=== PATIENT | male | born 1930 | race Caucasian/White ===

== ENCOUNTER 2017-11-23 06:50 | Inpatient (IN) | payer OTHER ==
[~2017-11-23] VITALS: Ht 170.2 cm; Wt 79.4 kg
--- NOTE | 2017-11-23 07:11 | ED GENERAL ADULT ---
History of Present Illness General Chief Complaint: Altered Mental Status Stated Complaint: BIBA, AMS Source: patient, family Exam Limitations: confusion Vital Signs & Intake/Output Vital Signs & Intake/Output Vital Signs Date Time Temp Pulse Resp B/P B/P Pulse O2 O2 Flow FiO2 Mean Ox Delivery Rate 11/23 1008 98.3 75 18 160/76 99 Room Air 11/23 0820 92 20 162/80 96 Room Air 11/23 0708 98.4 84 18 157/74 95 Room Air 11/23 0706 98 Room Air Allergies Coded Allergies: No Known Allergies (11/23/17) Reconcile Medications Allopurinol 300 MG TABLET 1 TAB PO DAILY GOUT (Reported) Felodipine (Felodipine ER) 10 MG TAB.ER.24H 1 TAB PO DAILY HTN (Reported) Levothyroxine Sodium 75 MCG TABLET 1 TAB PO DAILY THYROID (Reported) Lisinopril 20 MG TABLET 1 TAB PO DAILY HTN (Reported) Lovastatin 40 MG TABLET 1 TAB PO DAILY CHOLESTEROL (Reported) with food Metoprolol Tartrate 50 MG TABLET 1 TAB PO BID HTN (Reported) Triage Note: TRIAGE: BIBA FROM HOME, PER EMS PATIENT STATES "HEARD HIM FALL WHEN HE GOT UP TO GO TO THE BATHROOM, ACTING WEIRD SINCE." PATIENT NOTED W/ SLURRED SPEECH, DIFFICULTY FINDING WORDS, NO NEURO DEFICITS NOTED. NO OBVIOUS SIGNS OF TRAUMA NOTED. PREHOSP IV EST #18 RH, PREHOSP FINGERSTICK 136. MD CARRILLO AND CT AWARE OF PATIENT ARRIVAL. Triage Nurses Notes Reviewed? yes Onset: Abrupt Duration: unknown duration Timing: recent history HPI: 11/23/17 87-year-old male presents to the emergency department for slurred speech and altered mental status. The patient was last seen in his usual state of health last night. This morning shortly after waking his heard a thump and found him crawling on the floor. He had slurred speech and they called the son who immediately came over. The son tells me that he had right sided facial asymmetry at that time. This has since improved. But on initial presentation in the ED he did slightly have garbled speech. He denies fever or headache shortness of breath or any pain. He has a past medical history of hypothyroidism, hypertension, and coronary artery disease. Initial EKG reveals new T wave inversions in leads III and aVF. Past History Travel History Traveled to [place] past 21 day No Medical History Any Pertinent Medical History? see below for history Cardiovascular: CAD, hypertension, hyperlipidemia Musculoskeletal: gout Surgical History Surgical History: non-contributory Family History Hx Contributory? No Review of Systems Review of Systems Constitutional: Denies: fever. EENTM: Denies: double vision. Respiratory: Reports: no symptoms. Cardiovascular: Reports: no symptoms. GI: Denies: abdominal pain. Genitourinary: Reports: no symptoms. Musculoskeletal: Reports: see HPI. Skin: Denies: rash. Neurological/Psychological: Reports: no symptoms. Hematologic/Endocrine: Reports: no symptoms. Immunologic/Allergic: Reports: no symptoms. Physical Exam Physical Exam General Appearance: well developed/nourished, alert, awake Head: atraumatic, normal appearance Eyes: Bilateral: normal appearance, PERRL, EOMI. Ears, Nose, Throat: normal pharynx, normal ENT inspection Neck: normal inspection, supple Respiratory: normal breath sounds, chest non-tender, no respiratory distress Cardiovascular: regular rate/rhythm Peripheral Pulses: 4+ radial (R), 4+ radial (L) Gastrointestinal: soft, non-tender Back: normal range of motion Extremities: normal inspection, normal range of motion Neurologic/Psych: awake, alert, oriented x 3 Skin: intact, normal color, warm/dry Comments: The patient has slight garbled speech but otherwise his neurological exam is normal. He has a positive gag reflex and tolerates water. Core Measures ACS in differential dx? Yes No ASA d/t GIVEN CVA/TIA Diagnosis: Yes NIH Stroke Scale (24 Hours) NIH Stroke Scale (24 Hours) Response Value Level of Consciousness alert 0 LOC Questions answers both correctly 0 LOC Commands obeys one correctly 1 Best Gaze normal 0 Visual Welsh no visual loss 0 Facial Paresis normal 0 Motor Arm - Left no drift 0 Motor Arm - Right no drift 0 Motor Leg - Left no drift 0 Motor Leg - Right no drift 0 Limb Ataxia no ataxia 0 Sensory normal 0 Best Language no aphasia 0 Dysarthria mild/mod slurring words 1 Extinction and Inattention no neglect 0 Total 2 Date Last Known Well: 11/22/17 Time Last Known Well: 1999 Reason tPA not ordered Medical Contraindication Swallow Evaluation Pass Swallow eval date 11/23/17 Sepsis Present: No Sepsis Focused Exam Completed? No Progress Differential Diagnoses I considered the following diagnoses in my evaluation of the patient: [TIA, CVA, sepsis, lactic acidosis, dehydration, acute coronary syndrome] Plan of Care: Orders Procedure Date/time Status Heart Healthy Diet 11/23 L Active Patient Data 11/23 1032 Active LACTIC ACID 11/23 1029 Active ED Holding Orders 11/23 1024 Active Admit to inpatient 11/23 1024 Active Vital Signs 11/23 1024 Active Code Status 11/23 1024 Active EKG 11/23 0738 Active Saline Lock 11/23 0730 Active CULTURE,URINE 11/23 0729 Active BLOOD CULTURE 11/23 07 Active URINALYSIS 11/23 728 Active TSH REFLEX 11/23 07 Complete TROPONIN LEVEL 11/23 728 Complete LACTIC ACID 11/23 728 Complete COMPREHENSIVE METABOLIC PANEL 11/23 728 Complete CBC WITHOUT DIFFERENTIAL 11/23 728 Complete NIH Stroke Scale 11/23 07 Active Intake & Output 11/23 0654 Active Laboratory Tests 11/23/17 1022: Urine Color Pending, Urine Clarity Pending, Urine pH Pending, Ur Specific [place] Pending, Urine Protein Pending, Urine Ketones Pending, Urine Nitrite Pending, Urine Bilirubin Pending, Urine Urobilinogen Pending, Ur Leukocyte Esterase Pending, Ur Microscopic SEDIMENT EXAMINED, Urine RBC Pending, Urine Hemoglobin Pending, Urine Glucose Pending 11/23/17 0745: Anion Gap 16, Estimated GFR > 60, BUN/Creatinine Ratio 15.0, Glucose 145 H, Lactic Acid 2.6 H, Calcium 9.4, Total Bilirubin 1.0, AST 35, ALT 44, Alkaline Phosphatase 103, Troponin I 0.01, Total Protein 6.7, Albumin 3.8, Globulin 2.9, Albumin/Globulin Ratio 1.3, TSH &T3 &Free T4 Intrp 2.490, CBC w Diff NO MAN DIFF REQ, RBC 5.09, MCV 95.1 H, MCH 32.2 H, RDW 13.5, MPV 7.9, Gran % 84.0 H, Lymphocytes % 7.3 L, Monocytes % 7.9, Eosinophils % 0.3, Basophils % 0.5, Absolute Granulocytes 11.2 H, Absolute Lymphocytes 1.0 L, Absolute Monocytes 1.0 H, Absolute Eosinophils 0, Absolute Basophils 0.1, PUBS MCHC 33.9 Microbiology 11/23 1022 URINE ROUT: Urine Culture - RECD 11/23 0832 BLOOD: Blood Culture - RECD 11/23 744 BLOOD: Blood Culture - RECD Initial ED EKG: NSR, DOWN T IN III AND AVF, NEW Prior EKG: changed Departure Departure Disposition: STILL A PATIENT Condition: Stable Clinical Impression Primary Impression: Acute electrocardiogram changes Secondary Impressions: Altered mental status, Lactic acid acidosis, TIA ( transient ischemic attack) Referrals: Noé MOORE,Godwin Allison (PCP/Family) Departure Forms: Customer Survey General Discharge Information Admission Note Spoke With: Deyvi MOORE,Teena Documentation of Exam: Documentation of any treatments & extenuating circumstances including Concerns Regarding Discharge (functional status, medication knowledge or non-compliance, living conditions, etc.) that warrant an admission rather than observation: [The patient needs admission for serial EKG and troponins, consider cardiology consultation, neurological examinations every 6 hours, inpatient MRI of the brain, consider neurology consultation, IV fluids given gently. I considered sepsis. However I do not think the patients lactic acidosis Is secondary to sepsis. Therefore only minimal IV fluids were given has he is hypertensive. Critical Care Note Critical Care Note Critical Care Time: non-applicable
--- NOTE | 2017-11-23 07:39 | CT SCAN REPORT ---
EXAMINATION: CT HEAD WITHOUT CONTRAST CLINICAL INFORMATION: Slurred speech. Difficulty finding words. Altered mental status. COMPARISON: None TECHNIQUE: Contiguous axial imaging was performed from the skull base to vertex without intravenous administration of contrast. DLP: 621 mGy-cm FINDINGS: Moderate diffuse commensurate prominence of ventricles and sulci is noted. Segmental vascular calcifications are present in the intradural segments of the vertebral arteries and cavernous portions of the internal carotid arteries bilaterally. Focal subcentimeter areas of cystic encephalomalacia are present in at least 3 locations in the right lentiform nucleus, and the anterior limb of the right internal capsule consistent with chronic lacunar infarcts. Moderate patchy hypodensities are present in the supratentorial periventricular white matter and ventral tess suspicious for chronic small vessel ischemic disease. No intracranial hemorrhage, tumors or acute appearing infarcts are identified. The orbits and globes are grossly normal in appearance. No significant opacification of the visualized paranasal sinuses, mastoid air cells or middle ear cavities is noted. IMPRESSION: 1. No acute abnormalities identified. 2. Multiple chronic lacunar infarcts and mild-moderate white matter chronic small vessel ischemic disease. 3. Mild-moderate diffuse parenchymal volume loss of the brain.
[2017-11-23 08:00] LABS: ABSOLUTE BASOPHIL COUNT 0.1 /CUMM (0.0-0.2); ABSOLUTE EOSINOPHIL COUNT 0 /CUMM (0.0-0.7); ABSOLUTE GRANULOCYTE CT 11.2 /CUMM (1.4-6.5); BASOPHIL % 0.5 % (0.0-2.0); EOSINOPHIL % 0.3 % (0-5); HEMATOCRIT 48.4 % (42-52); MEAN CORPUSCULAR HGB 32.2 PG (27.0-31.0); MEAN CORPUSCULAR HGB CONC 33.9 G/DL (33.0-37.0); MEAN CORPUSCULAR VOLUME 95.1 FL (80.0-94.0); MEAN PLATELET VOLUME 7.9 FL (7.4-10.4); PLATELET COUNT 223 /CUMM (130-400); RBC DISTRIBUTION WIDTH 13.5 % (11.5-14.5); RED BLOOD CELL CT 5.09 /CUMM (4.70-6.10); WHITE BLOOD CELL COUNT 13.3 /CUMM (4.8-10.8)
[2017-11-23] MEDS ORDERED: LOVASTATIN40 M1 PO (08:08)
[2017-11-23] MEDS ORDERED: ALLOPURINOL300 M1 PO (08:09)
[2017-11-23] MEDS ORDERED: LISINOPRIL20 M1 PO (08:09)
[2017-11-23] MEDS ORDERED: FELODIPINE ER10 MG PO (08:09)
[2017-11-23] MEDS ORDERED: LEVOTHYROXINE75 MCG PO (08:09)
[2017-11-23] MEDS ORDERED: METOPROLOL TART50 M1 PO (08:09)
--- NOTE | 2017-11-23 08:09 | RADIOLOGY REPORT ---
EXAMINATION: XR PORTABLE CHEST CLINICAL INFORMATION: Weakness. Rule out pneumonia. COMPARISON: None TECHNIQUE: Portable AP 85 degrees upright view of the chest was obtained. FINDINGS: Median sternotomy wires are demonstrated. The cardiac silhouette is not enlarged. There are surgical clips visualized. The lungs and pleural spaces are clear. IMPRESSION: No acute pulmonary findings.
[2017-11-23] MEDS ORDERED: ASPIRIN81 M4 PO (11:31)
--- NOTE | 2017-11-23 12:41 | History & Physical ---
See Addendum General Information and HPI MD Statement: I have seen and personally examined LUCRETIA AMARO and documented this H&P. The patient is a 87 year old M who presented with a patient stated chief complaint of [weakness and slurred speech]. Source of Information: patient, family, EMS Exam Limitations: no limitations History of Present Illness: Mr. 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 Most of the history was obtained from the patient and family at bedside reported that up to 5:30 AM he was feeling well and woke up to go to the bathroom in the bathroom he felt weak and stumbled down on his knees, he denied any fall, loss of consciousness, convulsions. Patient crawled back to his bed where his is. According to the patient was breathing heavily and was mumbling with no clear words, she called her son who live next door and came and called EMS. Patient however was able to stand and lay on bed on his own. They also reported right fascial drooping "his eye was closed, his mouth was drooping" but no loss of consciousness or disorientation. His speech started gradually to improve however he was frustrated and had some difficulty finding words at home. Patient denied any similar previous episodes, no weakness, numbness, chest pain, palpitation, shortness of breath, abdominal pain, nausea or vomiting. No history of recent sickness or history of sick contact. 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 He only follow with his PCP and cardiology Dr. Kurtz. Patient denied any recent changes in his medication and used to take his medication as instructed. He reported occasional cigar smoking, he is an every day drinker used to drink scotch couple shots and 2 beers daily. No history of drugs. Allergies/Medications Allergies: Coded Allergies: No Known Allergies (11/23/17) Home Med list Allopurinol 300 MG TABLET 1 TAB PO DAILY GOUT (Reported) Aspirin (Aspirin*) 81 MG TAB.CHEW 1 TAB PO DAILY HEART HEALTH (Reported) Felodipine (Felodipine ER) 10 MG TAB.ER.24H 1 TAB PO DAILY HTN (Reported) Levothyroxine Sodium 75 MCG TABLET 1 TAB PO DAILY THYROID (Reported) Lisinopril 20 MG TABLET 1 TAB PO DAILY HTN (Reported) Lovastatin 40 MG TABLET 1 TAB PO DAILY CHOLESTEROL (Reported) with food Metoprolol Tartrate 50 MG TABLET 1 TAB PO BID HTN (Reported) Past History Travel History Traveled to [place] past 21 day No Medical History Cardiovascular: CAD, hypertension, hyperlipidemia Musculoskeletal: gout Endocrine: hypothyroidism Isolation History: Standard Surgical History Surgical History: non-contributory Past Family/Social History Psychosocial History Where do you live? Home Who Do You Live With? spouse Services at Home: None Primary Language: Portuguese Smoking Status: Current Some Day Smoker ETOH Use: heavy use Illicit Drug Use: denies illicit drug use Functional Ability ADLs Independent: dressing, eating, toileting, bathing. Ambulation: independent IADLs Independent: shopping, housework, finances, food prep, telephone, transportation , medication admin. Review of Systems Review of Systems Constitutional: Denies: chills, fever, weakness. EENTM: Denies: blurred vision, nasal congestion, epistaxis, nasal pain, throat pain. Cardiovascular: Denies: chest pain, orthopena, palpitations, peripheral edema, syncope. Respiratory: Denies: cough, short of breath. GI: Denies: abdominal pain, diarrhea, nausea, vomiting. Genitourinary: Denies: discharge, dysuria, frequency, hematuria. Musculoskeletal: Denies: back pain, joint pain, muscle pain. Skin: Denies: rash. Neurological/Psychological: Denies: anxiety, ataxia, confusion, dementia, headache, numbness, tingling. Hematologic/Endocrine: Denies: bruising. Exam & Diagnostic Data Last 24 Hrs of Vital Signs/I&O Vital Signs Date Time Temp Pulse Resp B/P B/P Pulse O2 O2 Flow FiO2 Mean Ox Delivery Rate 11/23 1453 97.8 67 20 150/78 96 Room Air 11/23 1051 160/76 11/23 1051 160/76 11/23 1051 160/76 11/23 1008 98.3 75 18 160/76 99 Room Air 11/23 0820 92 20 162/80 96 Room Air 11/23 0708 98.4 84 18 157/74 95 Room Air 11/23 0706 98 Room Air Intake & Output 11/23 1600 11/23 0800 11/23 0000 Intake Total Output Total Balance Patient 79.379 kg 79.379 kg Weight Weight Estimated Measurement Method Physical Exam General Appearance Alert, Oriented X3, Cooperative, No Acute Distress Skin No Rashes Skin Temp/Moisture Exam: Warm/Dry HEENT Atraumatic, PERRLA, EOMI, Mucous Membr. moist/pink Neck Supple Lymphatic No cervical lymphadenopathy Cardiovascular Regular Rate, Normal S1, Normal S2, Systolic murmur Lungs Clear to Auscultation, Normal Air Movement Abdomen Normal Bowel Sounds, Soft, No Tenderness Neurological Normal Gait, Normal Speech, Strength at 5/5 X4 Ext, Normal Tone, Sensation Intact, Cranial Nerves 3-12 NL, Hypo- reflexia x4 finger to nose abnormal right side dysmetria normal rapid alternation movement abnormal questionable knee to heel test bilateral no ataxia no nystagmus no tremors, babinski negative bilateral Extremities No Clubbing, No Cyanosis, No Edema, Normal Pulses Assessment/Plan Assessment: Mr. 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 1 admission vital signs 98.4, pulse 84 regular, blood pressure 157/74, respiratory rate 18 and saturation 98% room air Labs significant for leukocytosis 13.3 with no bands, normal electrolytes, lactic acid 2.6, sugar 145, UA negative nitrates CT head IMPRESSION: 1. No acute abnormalities identified. 2. Multiple chronic lacunar infarcts and mild-moderate white matter chronic small vessel ischemic disease. 3. Mild-moderate diffuse parenchymal volume loss of the brain. Chest x-ray IMPRESSION: No acute pulmonary findings. Problem list #Stroke versus TIA #History of hypertension #History of coronary artery disease #Hyperlipidemia Patient physical exam is positive for cerebellar ischemia given dysmetria on the right side and abnormal knee to heel test. CT on admission revealed multiple chronic laucnar infarctions in setting of multiple risk factors hypertension, hyperlipidemia and CAD disease. Patient's symptoms gradually improving however continue to be below baseline in terms of slurred speech. Totally denied weakness or numbness. Patient could have minor stroke involving cerebellum. He would be admitted to telemetry floor, will obtain MRI head with and without JAVED, get neuro consultation and cardiac consultation. Will obtain coronary artery ultrasound. Will obtain swallow evaluation prior starting the diet. We will obtain hemoglobin A1c to rule out diabetes as an additional risk factor. Continue aspirin and statin. We should allow for permissive hypertension however after discussing the case with the neurologist Dr. Cruz, patient's blood pressure has been systolic 150- 160 which is acceptable and we will continue with home medications, avoid adding extra blood pressure medication. Patient presented with mild leukocytosis without bandemia, lactic acid of 2.6. I think leukocytosis mostly reactional as patient has no symptoms or signs of infection. Lactic acid could represent ischemic versus dehydration, would hydrate gently with normal saline 100 mL/h and remeasure in 3 hours. Patient received one dose of ceftazidime in ED, will follow off antibiotics. Code full DVT prophylaxis Lovenox cleared by neurologist Dr. Cruz Diet nothing by mouth pending swallow eval As Ranked By This Provider Problem List: 1. Lactic acid acidosis 2. TIA (transient ischemic attack) 3. Altered mental status Core Measures/Misc (07/30) Acute Coronary Syndrome ACS Diagnosis: No Congestive Heart Failure Congestive Heart Failure Diagnosis No Cerebrovascular Accident CVA/TIA Diagnosis: Yes Date Last Known Well: 11/22/17 Time Last Known Well: 1999 Swallow Evaluation Pass VTE (View Protocol) VTE Risk Factors Age>40 No Mechanical VTE Prophylaxis d/t N/A MechProphylax Ordered No VTE Pharm Prophylaxis d/t NA PharmProphylax ordered Sepsis (View protocol) Sepsis Present: No
--- NOTE | 2017-11-23 13:58 | Cons- Cardiology ---
General Information and HPI Consulting Request Date of Consult: 11/23/17 Requested By: Ernesto Acuna MD Reason for Consult: Question stroke, question EKG changes and an 87-year-old man with previous coronary bypass surgery. Source of Information: patient, old records Exam Limitations: no limitations History of Present Illness: Romain Amaro is an 87-year-old male who presented in 2004 with increasing angina, which he had since 1985. Cardiac catheterization showed left main and severe 3-vessel disease. He had coronary bypass surgery in 2004 with vein grafts to the right, marginal circumflex and a sequential BOATENG to diagonal and LAD. He has done very well since then with no recurrent angina, etc. His last stress testing was in 2004, which looked good. He also has had mild aortic stenosis which has been slightly progressive. His echo in 2012 showed a mean gradient of only 12 mmHg. He has never had symptoms from this. He also has dyslipidemia on medical therapy and this has been nicely controlled. He had a followup echo for his aortic valve disease on 02/17/2016 which showed normal LV function, mild aortic stenosis with a peak gradient of 25.6 mmHg and a mean gradient of 13 mmHg. At his last visit in August 2017 Romain was feeling well. He had no cardiac complaints at that time. He denied chest pain, shortness of breath, palpitations , dizziness, syncope, edema, etc. His medications included aspirin, felodipine, lisinopril, lovastatin, and metoprolol. His labs in July showed a cholesterol of 156 and an LDL of 48, and the rest of his routine labs were unremarkable. At the time of that visit I recommended another echocardiogram to follow-up on his aortic valve disease, but he did not have that done as yet. The patient was brought to the emergency department today because of slurred speech. His EKG was noted to have some minor changes as well his initial troponin is negative. There were no complaints of chest pain or shortness of breath. His CT of the head showed nothing acute but he has evidence of previous lacunar infarcts and volume loss. However his MRI does show evidence of multiple acute infarcts. Allergies/Medications Allergies: Coded Allergies: No Known Allergies (11/23/17) Home Med List: Allopurinol 300 MG TABLET 1 TAB PO DAILY GOUT (Reported) Aspirin (Aspirin*) 81 MG TAB.CHEW 1 TAB PO DAILY HEART HEALTH (Reported) Felodipine (Felodipine ER) 10 MG TAB.ER.24H 1 TAB PO DAILY HTN (Reported) Levothyroxine Sodium 75 MCG TABLET 1 TAB PO DAILY THYROID (Reported) Lisinopril 20 MG TABLET 1 TAB PO DAILY HTN (Reported) Lovastatin 40 MG TABLET 1 TAB PO DAILY CHOLESTEROL (Reported) with food Metoprolol Tartrate 50 MG TABLET 1 TAB PO BID HTN (Reported) Current Medications: Current Medications Sig/Demond Start time Last Medication Dose Route Stop Time Status Admin Acetaminophen 650 MG Q6P PRN 11/23 1230 AC PO Allopurinol 300 MG DAILY 11/24 1000 AC PO Amlodipine Besylate 10 MG DAILY 11/24 1000 AC PO Amlodipine Besylate 10 MG ONCE ONE 11/23 0915 DC 11/23 PO 11/23 0916 1051 Aspirin 81 MG DAILY 11/24 1000 AC PO Aspirin 0 .STK-MED ONE 11/23 1002 DC PO Aspirin 81 MG ONCE ONE 11/23 0915 DC 11/23 PO 11/23 0916 1007 Atorvastatin Calcium 40 MG 1700 11/23 1700 AC PO Ceftazidime 0 .STK-MED ONE 11/23 1034 DC .ROUTE Ceftazidime 1,000 MG STAT STA 11/23 0913 DC 11/23 IV 11/23 0914 1039 Enoxaparin Sodium 40 MG DAILY 11/23 1221 AC 11/23 SC 1238 Levothyroxine Sodium 0.075 MG DAILY AC 11/23 1205 AC 11/23 PO 1238 Lisinopril 20 MG DAILY 11/24 1000 AC PO Lisinopril 20 MG ONCE ONE 11/23 0915 DC 11/23 PO 11/23 0916 1051 Metoprolol Tartrate 50 MG BID 11/23 2200 AC PO Metoprolol Tartrate 50 MG ONCE ONE 11/23 09 DC 11/23 PO 11/23 0916 1051 Sodium Chloride 1,000 ML .Q10H 11/23 1230 AC 11/23 IV 1239 Sodium Chloride 250 ML BOLUS ONE 11/23 914 DC 11/23 IV 11/23 1014 1007 Review of Systems Review of Systems: No other complaints Past History Travel History Traveled to [place] past 21 day No Medical History Cardiovascular: aortic stenosis, CAD, hypertension, hyperlipidemia, S/P CABG Musculoskeletal: gout Endocrine: hypothyroidism Surgical History Surgical History: non-contributory Psychosocial History ETOH Use: occasional use Illicit Drug Use: denies illicit drug use Exam & Diagnostic Data Vital Signs and I&O Vital Signs Date Time Temp Pulse Resp B/P B/P Pulse O2 O2 Flow FiO2 Mean Ox Delivery Rate 11/23 1051 160/76 11/23 1051 160/76 11/23 1051 160/76 11/23 1008 98.3 75 18 160/76 99 Room Air 11/23 0820 92 20 162/80 96 Room Air 11/23 0708 98.4 84 18 157/74 95 Room Air 11/23 0706 98 Room Air Intake & Output 11/23 1600 11/23 0800 11/23 0000 11/22 1600 11/22 0800 11/22 0000 Intake Total Output Total Balance Patient 175 lb Weight Physical Exam: Well-developed well-nourished elderly man in no acute distress, some slurring of speech but appropriate. No obvious weakness. HEENT exam normal Neck veins are not distended No carotid bruits Chest is clear Heart regular rhythm, soft systolic ejection murmur at the base. Extremities no edema. Labs/[place] Results: Laboratory Tests 11/23 11/23 1150 1022 Chemistry Lactic Acid (0.7 - 2.1 mmol/L) 1.9 Urines Urinalysis LIGHT H Urine Color (YEL,AMB,STR) YEL Urine Clarity (CLEAR) CLEAR Urine pH (5.0 - 8.0) 6.0 Ur Specific [place] (1.001 - 1.035) 1.025 Urine Protein (NEG,<30 MG/DL) TRACE H Urine Ketones (NEG) NEG Urine Nitrite (NEG) NEG Urine Bilirubin (NEG) NEG Urine Urobilinogen (0.1 - 1.0 EU/dl) 0.2 Ur Leukocyte Esterase (NEG) NEG Ur Microscopic SEDIMENT EXAMINED Urine RBC (0 - 5 /HPF) RARE Urine WBC (0 - 2 /HPF) RARE Ur Epithelial Cells (NONE,FEW) RARE Urine Bacteria (NEG/NONE) RARE H Hyaline Casts (0/LPF) RARE H Granular Casts (NONE /LPF) RARE H Urine Mucus (FEW,NONE) FEW Urine Hemoglobin (NEG) NEG Urine Glucose (N MG/DL) NEG 11/23 0745 Chemistry Sodium (137 - 145 mmol/L) 142 Potassium (3.5 - 5.1 mmol/L) 4.1 Chloride (98 - 107 mmol/L) 104 Carbon Dioxide (22 - 30 mmol/L) 22 Anion Gap (5 - 16) 16 BUN (9 - 20 mg/dL) 15 Creatinine (0.7 - 1.2 mg/dL) 1.0 Estimated GFR (>60 ml/min) > 60 BUN/Creatinine Ratio (7 - 25 %) 15.0 Glucose (65 - 99 mg/dL) 145 H Hemoglobin A1c (4.2 - 5.8 %) Pending Lactic Acid (0.7 - 2.1 mmol/L) 2.6 H Calcium (8.4 - 10.2 mg/dL) 9.4 Total Bilirubin (0.2 - 1.3 mg/dL) 1.0 AST (17 - 59 U/L) 35 ALT (21 - 72 U/L) 44 Alkaline Phosphatase (< 127 U/L) 103 Troponin I (<0.11 ng/ml) 0.01 Total Protein (6.3 - 8.2 g/dL) 6.7 Albumin (3.5 - 5.0 g/dL) 3.8 Globulin (1.9 - 4.2 gm/dL) 2.9 Albumin/Globulin Ratio (1.1 - 2.2 %) 1.3 TSH &T3 &Free T4 Intrp (0.27 - 4.20 uIU/mL) 2.490 Hematology CBC w Diff NO MAN DIFF REQ WBC (4.8 - 10.8 /CUMM) 13.3 H RBC (4.70 - 6.10 /CUMM) 5.09 Hgb (14.0 - 18.0 G/DL) 16.4 Hct (42 - 52 %) 48.4 MCV (80.0 - 94.0 FL) 95.1 H MCH (27.0 - 31.0 PG) 32.2 H RDW (11.5 - 14.5 %) 13.5 Plt Count (130 - 400 /CUMM) 223 MPV (7.4 - 10.4 FL) 7.9 Gran % (42.2 - 75.2 %) 84.0 H Lymphocytes % (20.5 - 51.1 %) 7.3 L Monocytes % (1.7 - 9.3 %) 7.9 Eosinophils % (0 - 5 %) 0.3 Basophils % (0.0 - 2.0 %) 0.5 Absolute Granulocytes (1.4 - 6.5 /CUMM) 11.2 H Absolute Lymphocytes (1.2 - 3.4 /CUMM) 1.0 L Absolute Monocytes (0.10 - 0.60 /CUMM) 1.0 H Absolute Eosinophils (0.0 - 0.7 /CUMM) 0 Absolute Basophils (0.0 - 0.2 /CUMM) 0.1 PUBS MCHC (33.0 - 37.0 G/DL) 33.9 Diagnostic Data EKG Results EKG shows probably an ectopic atrial rhythm at a rate of 78. There is borderline right axis deviation. There is nonspecific inferior T-wave changes. CXR Results PATIENT: ROMAIN AMARO PRESENT AGE: 87 PATIENT ACCOUNT NO: [id number] : 30 LOCATION: [facility] ORDERING PHYSICIAN: Frantz Daley DO SERVICE DATE: 11/23/17 EXAM TYPE: RAD - XRY-PORTABLE CHEST XRAY EXAMINATION: XR PORTABLE CHEST CLINICAL INFORMATION: Weakness. Rule out pneumonia. COMPARISON: None TECHNIQUE: Portable AP 85 degrees upright view of the chest was obtained. FINDINGS: Median sternotomy wires are demonstrated. The cardiac silhouette is not enlarged. There are surgical clips visualized. The lungs and pleural spaces are clear. IMPRESSION: No acute pulmonary findings. Other Results PATIENT: ROMAIN AMARO PRESENT AGE: 87 PATIENT ACCOUNT NO: [id number] : 30 LOCATION: [facility] ORDERING PHYSICIAN: Frantz Daley DO SERVICE DATE: 11/23/17 EXAM TYPE: CAT - CT HEAD WO IV CONTRAST EXAMINATION: CT HEAD WITHOUT CONTRAST CLINICAL INFORMATION: Slurred speech. Difficulty finding words. Altered mental status. COMPARISON: None TECHNIQUE: Contiguous axial imaging was performed from the skull base to vertex without intravenous administration of contrast. DLP: 621 mGy-cm FINDINGS: Moderate diffuse commensurate prominence of ventricles and sulci is noted. Segmental vascular calcifications are present in the intradural segments of the vertebral arteries and cavernous portions of the internal carotid arteries bilaterally. Focal subcentimeter areas of cystic encephalomalacia are present in at least 3 locations in the right lentiform nucleus, and the anterior limb of the right internal capsule consistent with chronic lacunar infarcts. Moderate patchy hypodensities are present in the supratentorial periventricular white matter and ventral tess suspicious for chronic small vessel ischemic disease. No intracranial hemorrhage, tumors or acute appearing infarcts are identified. The orbits and globes are grossly normal in appearance. No significant opacification of the visualized paranasal sinuses, mastoid air cells or middle ear cavities is noted. IMPRESSION: 1. No acute abnormalities identified. 2. Multiple chronic lacunar infarcts and mild-moderate white matter chronic small vessel ischemic disease. 3. Mild-moderate diffuse parenchymal volume loss of the brain. DICTATED BY: Jesus Nava MD DATE/TIME DICTATED:11/23/17730 [employer] TECHNICIAN:CHAVA DATE/TIME TRANSCRIBED:11/23/17730 CONFIDENTIAL, DO NOT COPY WITHOUT APPROPRIATE AUTHORIZATION. <Electronically signed in Other Vendor System> SIGNED BY: Jesus Nava MD 11/23/1739 PATIENT: ROMAIN AMARO PRESENT AGE: 87 PATIENT ACCOUNT NO: [id number] : 30 LOCATION: [facility] ORDERING PHYSICIAN: Nica Goode MD SERVICE DATE: 11/23/17- EXAM TYPE: US - [id number] DOPPLER EXAMINATION: DUPLEX BILATERAL CAROTID ULTRASOUND CLINICAL INFORMATION: Slurred speech. COMPARISON: No similar prior examinations available for comparison. TECHNIQUE: Real-time ultrasound and Doppler techniques (integrating B-mode 2D vascular images, Doppler spectral analysis and color flow Doppler imaging) were utilized to interrogate the extracranial carotid and vertebral arteries bilaterally. The degree of stenosis determined by criteria similar to NASCET. FINDINGS: Right side: 1. Moderate amount of plaque is seen in the ECA/ICA region. 2. The common carotid artery velocity is 38 cm/s. 3. The internal carotid artery velocities are 92 cm/s systolic and 18 cm/s diastolic. 4. The external carotid artery velocity is 175 cm/s. Left side: 1. Moderate amount of plaque is seen in the ECA/ICA region. 2. The common carotid artery velocity is 49 cm/s. 3. The internal carotid artery velocities are 66 cm/s systolic and 15 cm/s diastolic. 4. The external carotid artery velocity is 108 cm/s. ADDITIONAL FINDINGS: 1. The vertebral arteries show antegrade flow. IMPRESSION: 1. RIGHT: Nonhemodynamically significant stenosis of the proximal right internal carotid artery corresponding to a 0-49% stenosis by velocity criteria. 2. LEFT: Nonhemodynamically significant stenosis of the proximal left internal carotid artery corresponding to a 0-49% stenosis by velocity criteria. 3. No evidence for hemodynamically significant stenosis in the external carotid arteries. DICTATED BY: Sergio Traylor MD DATE/TIME DICTATED:11/23/171545 [employer] TECHNICIAN:CHAVA DATE/TIME TRANSCRIBED:11/23/171545 CONFIDENTIAL, DO NOT COPY WITHOUT APPROPRIATE AUTHORIZATION. PATIENT: ROMAIN AMARO PRESENT AGE: 87 PATIENT ACCOUNT NO: [id number] : 30 LOCATION: [facility] ORDERING PHYSICIAN: Nica Goode MD SERVICE DATE: 11/23/17- EXAM TYPE: MRI - MRI-HEAD W & W/O JAVED EXAMINATION: MR BRAIN WITHOUT AND WITH CONTRAST CLINICAL INFORMATION: Slurred speech, abnormal exam. History of facial droop. Assess for cerebellar stroke. COMPARISON: CT scan of the head earlier 11/23/2017. TECHNIQUE: MRI of the brain was obtained using routine sequences before and after the intravenous administration of 60 mL of OptiMARK. FINDINGS: There are multiple areas of restricted diffusion in the left occipital lobe. Less extensive foci are seen in the posterior right occipital lobe. There are also small foci of restricted diffusion in the right posterior parietal region and in the bilateral centra semiovale, more extensive on left. These areas are consistent with acute infarcts. There is no evidence of hemorrhagic transformation. There are areas of diffusion hyperintensity without restriction in the left cerebellar hemisphere and in the periventricular white matter, consistent with subacute areas of ischemia. Some of these foci demonstrate T2 and FLAIR hyperintensity. No mass effect or midline shift is seen. The ventricles and sulci are commensurately prominent consistent with moderate to severe diffuse volume loss. In addition to the signal changes described above, there are extensive areas of T2 and FLAIR hyperintensity in the periventricular and subcortical white matter, consistent with chronic microvascular ischemic disease. No discrete extra-axial fluid collections are seen; mild prominence of the extra-axial CSF around the cerebral convexities is likely due to cortical volume loss. On postcontrast imaging, there is no abnormal parenchymal or leptomeningeal enhancement. No pathologic magnetic susceptibility artifact is identified on the gradient refocused acquisition. The craniovertebral junction, marrow signal, and midline structures are normal. The major intracranial flow-voids at the level of the [place] are preserved. The dural venous sinus flow-voids are maintained. The mastoid air cells are well-aerated. There is mucoperiosteal thickening in the bilateral ethmoid sinuses. The nasal septum is deviated to the right. IMPRESSION: 1. There are multiple small areas of restricted diffusion in the bilateral occipital lobes, the right posterior parietal region and in the bilateral centra semiovale consistent with acute infarcts. None of these demonstrate hemorrhagic transformation. 2. In addition, there are diffusion hyperintensities without restriction, and relatively extensive periventricular and subcortical white matter changes consistent with subacute ischemia and chronic microvascular ischemic disease. 3. There is diffuse volume loss. There is no evidence of hemorrhage. DICTATED BY: Derrell Ramírez MD DATE/TIME DICTATED:11/23/171611 [employer] TECHNICIAN:CHAVA DATE/TIME TRANSCRIBED:11/23/171611 CONFIDENTIAL, DO NOT COPY WITHOUT APPROPRIATE AUTHORIZATION. <Electronically signed in Other Vendor System> SIGNED BY: Derrell Ramírez MD 11/23/17 4426 <Electronically signed in Other Vendor System> SIGNED BY: Sergio Traylor MD 11/23/17 0540 Assessment/Plan Assessment/Plan This patient presents with some multiples areas of stroke by MRI. This could be due to cardiac or vascular emboli, or possibly paroxysmal atrial fibrillation, although there is no evidence that he has had atrial fibrillation in the past or recently. There is also evidence of small vessel ischemic disease which could also explain his neurologic findings. There is no evidence of myocardial ischemia. His EKG is nonspecifically abnormal but consistent with previous electrocardiograms. He does have mild aortic stenosis on previous echo and this should be followed up with another echo also looking for additional sources of emboli. A ANGLE may be indicated as well after the transthoracic echocardiogram and further evaluation. I would continue him on telemetry monitoring for 24-48 hours. I would consider him for an implantable loop recorder if the workup is completely negative. However, at his age with his underlying vascular disease it is most likely that this is a vascular issue and not an arrhythmic or cardiac embolic issue, but of course the workup is just beginning at this time. Consult Acknowledgment - Thank you for your consult request.
[2017-11-23 14:53] VITALS: BP 150/78
--- NOTE | 2017-11-23 15:52 | ULTRASOUND REPORT ---
EXAMINATION: DUPLEX BILATERAL CAROTID ULTRASOUND CLINICAL INFORMATION: Slurred speech. COMPARISON: No similar prior examinations available for comparison. TECHNIQUE: Real-time ultrasound and Doppler techniques (integrating B-mode 2D vascular images, Doppler spectral analysis and color flow Doppler imaging) were utilized to interrogate the extracranial carotid and vertebral arteries bilaterally. The degree of stenosis determined by criteria similar to NASCET. FINDINGS: Right side: 1. Moderate amount of plaque is seen in the ECA/ICA region. 2. The common carotid artery velocity is 38 cm/s. 3. The internal carotid artery velocities are 92 cm/s systolic and 18 cm/s diastolic. 4. The external carotid artery velocity is 175 cm/s. Left side: 1. Moderate amount of plaque is seen in the ECA/ICA region. 2. The common carotid artery velocity is 49 cm/s. 3. The internal carotid artery velocities are 66 cm/s systolic and 15 cm/s diastolic. 4. The external carotid artery velocity is 108 cm/s. ADDITIONAL FINDINGS: 1. The vertebral arteries show antegrade flow. IMPRESSION: 1. RIGHT: Nonhemodynamically significant stenosis of the proximal right internal carotid artery corresponding to a 0-49% stenosis by velocity criteria. 2. LEFT: Nonhemodynamically significant stenosis of the proximal left internal carotid artery corresponding to a 0-49% stenosis by velocity criteria. 3. No evidence for hemodynamically significant stenosis in the external carotid arteries.
--- NOTE | 2017-11-23 16:26 | MRI REPORT ---
EXAMINATION: MR BRAIN WITHOUT AND WITH CONTRAST CLINICAL INFORMATION: Slurred speech, abnormal exam. History of facial droop. Assess for cerebellar stroke. COMPARISON: CT scan of the head earlier 11/23/2017. TECHNIQUE: MRI of the brain was obtained using routine sequences before and after the intravenous administration of 60 mL of OptiMARK. FINDINGS: There are multiple areas of restricted diffusion in the left occipital lobe. Less extensive foci are seen in the posterior right occipital lobe. There are also small foci of restricted diffusion in the right posterior parietal region and in the bilateral centra semiovale, more extensive on left. These areas are consistent with acute infarcts. There is no evidence of hemorrhagic transformation. There are areas of diffusion hyperintensity without restriction in the left cerebellar hemisphere and in the periventricular white matter, consistent with subacute areas of ischemia. Some of these foci demonstrate T2 and FLAIR hyperintensity. No mass effect or midline shift is seen. The ventricles and sulci are commensurately prominent consistent with moderate to severe diffuse volume loss. In addition to the signal changes described above, there are extensive areas of T2 and FLAIR hyperintensity in the periventricular and subcortical white matter, consistent with chronic microvascular ischemic disease. No discrete extra-axial fluid collections are seen; mild prominence of the extra-axial CSF around the cerebral convexities is likely due to cortical volume loss. On postcontrast imaging, there is no abnormal parenchymal or leptomeningeal enhancement. No pathologic magnetic susceptibility artifact is identified on the gradient refocused acquisition. The craniovertebral junction, marrow signal, and midline structures are normal. The major intracranial flow-voids at the level of the lower [place] are preserved. The dural venous sinus flow-voids are maintained. The mastoid air cells are well-aerated. There is mucoperiosteal thickening in the bilateral ethmoid sinuses. The nasal septum is deviated to the right. IMPRESSION: 1. There are multiple small areas of restricted diffusion in the bilateral occipital lobes, the right posterior parietal region and in the bilateral centra semiovale consistent with acute infarcts. None of these demonstrate hemorrhagic transformation. 2. In addition, there are diffusion hyperintensities without restriction, and relatively extensive periventricular and subcortical white matter changes consistent with subacute ischemia and chronic microvascular ischemic disease. 3. There is diffuse volume loss. There is no evidence of hemorrhage.
--- NOTE | 2017-11-23 18:41 | Cons- Neurology ---
General Information and HPI Consulting Request Date of Consult: 11/23/17 Requested By: Ernesto Acuna MD Reason for Consult: stroke Source of Information: patient, family, old records Exam Limitations: no limitations History of Present Illness: 87/M awakened today with slurred speech and right facial droop. Associated headache or lateralized weakness of extremites denied. Early vision early on has cleared, no diplopia. Improving progressively and rapidly according to his son. No prior clinical history of strokes despite CT and MRI findings. EKG changes present on presentation. Denied chest pain or palpitations. No known history of atrial fibrillation Allergies/Medications Allergies: Coded Allergies: No Known Allergies (11/23/17) Home Med List: Allopurinol 300 MG TABLET 1 TAB PO DAILY GOUT (Reported) Aspirin (Aspirin*) 81 MG TAB.CHEW 1 TAB PO DAILY HEART HEALTH (Reported) Felodipine (Felodipine ER) 10 MG TAB.ER.24H 1 TAB PO DAILY HTN (Reported) Levothyroxine Sodium 75 MCG TABLET 1 TAB PO DAILY THYROID (Reported) Lisinopril 20 MG TABLET 1 TAB PO DAILY HTN (Reported) Lovastatin 40 MG TABLET 1 TAB PO DAILY CHOLESTEROL (Reported) with food Metoprolol Tartrate 50 MG TABLET 1 TAB PO BID HTN (Reported) Current Medications: Current Medications Sig/Demond Start time Last Medication Dose Route Stop Time Status Admin Acetaminophen 650 MG Q6P PRN 11/23 1230 AC PO Allopurinol 300 MG DAILY 11/24 1000 AC PO Amlodipine Besylate 10 MG DAILY 11/24 1000 AC PO Amlodipine Besylate 10 MG ONCE ONE 11/23 0915 DC 11/23 PO 11/23 0916 1051 Aspirin 81 MG DAILY 11/24 1000 AC PO Aspirin 0 .STK-MED ONE 11/23 1002 DC PO Aspirin 81 MG ONCE ONE 11/23 0915 DC 11/23 PO 11/23 0916 1007 Atorvastatin Calcium 40 MG 1700 11/23 1700 AC 11/23 PO 1632 Ceftazidime 0 .STK-MED ONE 11/23 1034 DC .ROUTE Ceftazidime 1,000 MG STAT STA 11/23 0913 DC 11/23 IV 11/23 0914 1039 Enoxaparin Sodium 40 MG DAILY 11/24 1000 UNVr SC Enoxaparin Sodium 40 MG DAILY 11/23 1221 DC 11/23 SC 1238 Levothyroxine Sodium 0.075 MG DAILY AC 11/23 1205 AC 11/23 PO 1238 Lisinopril 20 MG DAILY 11/24 1000 CAN PO Lisinopril 20 MG ONCE ONE 11/23 1845 UNVr PO 11/23 1846 Lisinopril 20 MG ONCE ONE 11/23 0915 DC 11/23 PO 11/23 0916 1051 Lorazepam 0 Q1P PRN 11/23 1600 AC IV Metoprolol Tartrate 50 MG BID 11/23 2200 CAN PO Metoprolol Tartrate 50 MG ONCE ONE 11/23 1845 UNVr PO 11/23 1846 Metoprolol Tartrate 50 MG ONCE ONE 11/23 0915 DC 11/23 PO 11/23 0916 1051 Sodium Chloride 1,000 ML .[id number] 11/23 1230 AC 11/23 IV 1239 Sodium Chloride 250 ML BOLUS ONE 11/23 914 DC 11/23 IV 11/23 1014 1007 Review of Systems Review of Systems: ROS: A complete medical systems review was obtained. No pertinent complaints were found. Past History Travel History Traveled to [place] past 21 day No Medical History Cardiovascular: aortic stenosis, CAD, hypertension, hyperlipidemia, S/P CABG Musculoskeletal: gout Endocrine: hypothyroidism Surgical History Surgical History: non-contributory Psychosocial History Where Do You Live? Home Smoking Status: Former Smoker ETOH Use: occasional use Illicit Drug Use: denies illicit drug use Exam & Diagnostic Data Vital Signs and I&O Vital Signs Date Time Temp Pulse Resp B/P B/P Pulse O2 O2 Flow FiO2 Mean Ox Delivery Rate 11/23 1453 97.8 67 20 150/78 96 Room Air 11/23 1051 160/76 11/23 1051 160/76 11/23 1051 160/76 11/23 1008 98.3 75 18 160/76 99 Room Air 11/23 0820 92 20 162/80 96 Room Air 11/23 0708 98.4 84 18 157/74 95 Room Air 11/23 0706 98 Room Air Intake & Output 11/23 1600 11/23 0800 11/23 0000 Intake Total Output Total Balance Patient 175 lb 175 lb Weight Weight Estimated Measurement Method Physical Exam: On exam the patient appeared generally well and in no distress. No carotid bruits, soft systolic murmur. No peripheral edema Mental status: Alert, attentive, fully oriented, no language errors, still dysarthric. Recall and general fund of knowledge seem intact Funduscopic unremarkable Visual villarreal: Extinction of the right hemifield on DSS, Eye movements full without nystagmus, pupils midsize equal round and reactive to light. Mild right lower facial weakness Facial sensation normal bilaterally Hearing intact bilaterally Uvula elevates midline Tongue protrusion is midline Shoulder shrug symmetric Motor power and tone normal in all 4 extremities Sensation intact to primary modes Tendon reflexes normal and symmetric without pathologic signs Coordination dyspraxia of right hand Gait [testing deferred] Last 48 Hours of Lab Results: Laboratory Tests 11/23 11/23 1150 1022 Chemistry Lactic Acid (0.7 - 2.1 mmol/L) 1.9 Urines Urinalysis LIGHT H Urine Color (YEL,AMB,STR) YEL Urine Clarity (CLEAR) CLEAR Urine pH (5.0 - 8.0) 6.0 Ur Specific [place] (1.001 - 1.035) 1.025 Urine Protein (NEG,<30 MG/DL) TRACE H Urine Ketones (NEG) NEG Urine Nitrite (NEG) NEG Urine Bilirubin (NEG) NEG Urine Urobilinogen (0.1 - 1.0 EU/dl) 0.2 Ur Leukocyte Esterase (NEG) NEG Ur Microscopic SEDIMENT EXAMINED Urine RBC (0 - 5 /HPF) RARE Urine WBC (0 - 2 /HPF) RARE Ur Epithelial Cells (NONE,FEW) RARE Urine Bacteria (NEG/NONE) RARE H Hyaline Casts (0/LPF) RARE H Granular Casts (NONE /LPF) RARE H Urine Mucus (FEW,NONE) FEW Urine Hemoglobin (NEG) NEG Urine Glucose (N MG/DL) NEG 11/23 0745 Chemistry Sodium (137 - 145 mmol/L) 142 Potassium (3.5 - 5.1 mmol/L) 4.1 Chloride (98 - 107 mmol/L) 104 Carbon Dioxide (22 - 30 mmol/L) 22 Anion Gap (5 - 16) 16 BUN (9 - 20 mg/dL) 15 Creatinine (0.7 - 1.2 mg/dL) 1.0 Estimated GFR (>60 ml/min) > 60 BUN/Creatinine Ratio (7 - 25 %) 15.0 Glucose (65 - 99 mg/dL) 145 H Hemoglobin A1c (4.2 - 5.8 %) 5.2 Lactic Acid (0.7 - 2.1 mmol/L) 2.6 H Calcium (8.4 - 10.2 mg/dL) 9.4 Total Bilirubin (0.2 - 1.3 mg/dL) 1.0 AST (17 - 59 U/L) 35 ALT (21 - 72 U/L) 44 Alkaline Phosphatase (< 127 U/L) 103 Troponin I (<0.11 ng/ml) 0.01 Total Protein (6.3 - 8.2 g/dL) 6.7 Albumin (3.5 - 5.0 g/dL) 3.8 Globulin (1.9 - 4.2 gm/dL) 2.9 Albumin/Globulin Ratio (1.1 - 2.2 %) 1.3 TSH &T3 &Free T4 Intrp (0.27 - 4.20 uIU/mL) 2.490 Hematology CBC w Diff NO MAN DIFF REQ WBC (4.8 - 10.8 /CUMM) 13.3 H RBC (4.70 - 6.10 /CUMM) 5.09 Hgb (14.0 - 18.0 G/DL) 16.4 Hct (42 - 52 %) 48.4 MCV (80.0 - 94.0 FL) 95.1 H MCH (27.0 - 31.0 PG) 32.2 H RDW (11.5 - 14.5 %) 13.5 Plt Count (130 - 400 /CUMM) 223 MPV (7.4 - 10.4 FL) 7.9 Gran % (42.2 - 75.2 %) 84.0 H Lymphocytes % (20.5 - 51.1 %) 7.3 L Monocytes % (1.7 - 9.3 %) 7.9 Eosinophils % (0 - 5 %) 0.3 Basophils % (0.0 - 2.0 %) 0.5 Absolute Granulocytes (1.4 - 6.5 /CUMM) 11.2 H Absolute Lymphocytes (1.2 - 3.4 /CUMM) 1.0 L Absolute Monocytes (0.10 - 0.60 /CUMM) 1.0 H Absolute Eosinophils (0.0 - 0.7 /CUMM) 0 Absolute Basophils (0.0 - 0.2 /CUMM) 0.1 PUBS MCHC (33.0 - 37.0 G/DL) 33.9 Imaging/Other Studies: MRI brain: 1. There are multiple small areas of restricted diffusion in the bilateral occipital lobes, the right posterior parietal region and in the bilateral centra semiovale consistent with acute infarcts. None of these demonstrate hemorrhagic transformation. 2. In addition, there are diffusion hyperintensities without restriction, and relatively extensive periventricular and subcortical white matter changes consistent with subacute ischemia and chronic microvascular ischemic disease. 3. There is diffuse volume loss. There is no evidence of hemorrhage. Carotid Dopplers: Right side: 1. Moderate amount of plaque is seen in the ECA/ICA region. 2. The common carotid artery velocity is 38 cm/s. 3. The internal carotid artery velocities are 92 cm/s systolic and 18 cm/s diastolic. 4. The external carotid artery velocity is 175 cm/s. Left side: 1. Moderate amount of plaque is seen in the ECA/ICA region. 2. The common carotid artery velocity is 49 cm/s. 3. The internal carotid artery velocities are 66 cm/s systolic and 15 cm/s diastolic. 4. The external carotid artery velocity is 108 cm/s. ADDITIONAL FINDINGS: 1. The vertebral arteries show antegrade flow. Assessment/Plan Assessment: Stroke, discovered on awakening. Doing well with early improvement and minimal findings. Multiple vascular risk factors. Clinical findings consistent with a left parietal occipital location, no bedside evidence of multiple acute infarcts as reported on the MRI diffusion weighted imaging report. Differential could be artery to artery emboli from atherosclerotic cerebrovascular disease, cannot exclude cardioembolism particularly in view of the MRI report indicating acute changes in all cerebral vascular territories. Recommendations: Echocardiogram seeking evidence of left atrial disease, mural thrombi, etc. Would strongly consider ANGLE if TTE suggests wall motion abnormality or significant LA enlargement Continue telemetry seeking PAF. In view of MRI report would consider long-term monitoring if telemetry here is unrevealing If cardiac source of emboli found he will need full anticoagulation For now: Continue aspirin 81 MG EC daily Add Plavix 75 MG by mouth daily for dual antiplatelet therapy for 1-3 months Continue atorvastatin 40 mg daily PT, OT and ST consults Allow blood pressure to remain in current 150-160 systolic range for now, gradually bringing under control with eventual goal of 140 systolic Consult Acknowledgment - Thank you for your consult request.
[2017-11-23 23:13] VITALS: BP 142/72
[2017-11-24 06:00] VITALS: BP 122/66
[2017-11-24 08:12] LABS: ABSOLUTE BASOPHIL COUNT 0.1 /CUMM (0.0-0.2); ABSOLUTE EOSINOPHIL COUNT 0.1 /CUMM (0.0-0.7); ABSOLUTE LYMPH COUNT 1.5 /CUMM (1.2-3.4); ABSOLUTE MONOCYTE COUNT 0.9 /CUMM (0.10-0.60); BASOPHIL % 0.8 % (0.0-2.0)
[2017-11-24 08:44] LABS: ABSOLUTE GRANULOCYTE CT 6.2 /CUMM (1.4-6.5); EOSINOPHIL % 1.1 % (0-5); GRANULOCYTE % 70.7 % (42.2-75.2); MEAN CORPUSCULAR HGB 31.8 PG (27.0-31.0); MEAN CORPUSCULAR HGB CONC 32.8 G/DL (33.0-37.0); MEAN CORPUSCULAR VOLUME 96.8 FL (80.0-94.0); MEAN PLATELET VOLUME 8.1 FL (7.4-10.4); PLATELET COUNT 196 /CUMM (130-400); RBC DISTRIBUTION WIDTH 13.2 % (11.5-14.5); RED BLOOD CELL CT 4.51 /CUMM (4.70-6.10); WHITE BLOOD CELL COUNT 8.7 /CUMM (4.8-10.8)
[2017-11-24 09:12] LABS: HEMATOCRIT 43.6 % (42-52)
--- NOTE | 2017-11-24 09:45 | ECHOCARDIOGRAM REPORT ---
LUCRETIA ARAIZA Age: 87 : 1930 Gender: M Exam Date: 11/23/2017 19:02 Exam Location: 1 [address] Ht (in): 67 Wt (lb): 175 BSA: 1.95 BP: 160 / 76 Ordering Physician: Nica Goode MD Referring Physician: Celio Kurtz MD Chief, SoC Technologist: Rosemary Woods [facility] Room Number: [id number] Indications: STROKE Rhythm: Sinus Technical Quality: Fair FINDINGS Left Ventricle Normal size left ventricle. Mild concentric left ventricular hypertrophy. Normal left ventricular ejection fraction visually estimated at >65 %. No obvious regional wall motion abnormalities. Abnormal relaxation filling pattern of the left ventricle for age (stage 1 diastolic dysfunction). Right Ventricle The right ventricle is normal in size and function. Right Atrium The right atrium is normal in size. Left Atrium Left atrial size at the upper limits of normal. Mitral Valve Mild thickening/calcification of the mitral valve leaflets. Mild to moderate mitral annular calcification. Mild mitral regurgitation. Aortic Valve Diffuse thickening of the aortic valve cusps with reduced excursion. Mild aortic stenosis. No aortic regurgitation. Tricuspid Valve Structurally normal tricuspid valve. Mild tricuspid regurgitation. Right ventricular systolic pressure estimated to be elevated at 35- 40 mmHg. Pulmonic Valve Structurally normal pulmonic valve. Mild pulmonic regurgitation. Pericardium No pericardial or pleural effusion. Great Vessels Normal size aortic root. Aortic arch not well visualized. CONCLUSIONS Mild concentric left ventricular hypertrophy. Normal left ventricular ejection fraction visually estimated at >65 Abnormal relaxation filling pattern of the left ventricle for age (stage 1 diastolic dysfunction). Left atrial size at the upper limits of normal. Mild thickening/calcification of the mitral valve leaflets. Mild to moderate mitral annular calcification. Mild mitral regurgitation. Diffuse thickening of the aortic valve cusps with reduced excursion. Mild aortic stenosis. No aortic regurgitation. Right ventricular systolic pressure estimated to be elevated at 35- 40 mmHg. Aortic arch not well visualized. Celio Kurtz M.D. (Electronically Signed) Final Date: 24 November 2017 09:44 MEASUREMENTS (Male / Female) Normal Values 2D ECHO LV Diastolic Diameter PLAX 4.5 cm 4.2 - 5.9 / 3.9 - 5.3 cm LV Systolic Diameter PLAX 1.9 cm 2.1 - 4.0 cm LV Fractional Shortening PLAX 57.8 % 25 - 46 % LV Ejection Fraction 2D Teich 87.9 % IVS Diastolic Thickness 1.2 cm LVPW Diastolic Thickness 1.2 cm LV Relative Wall Thickness 0.5 RV Internal Dim ED PLAX 3.0 cm 1.9 - 3.8 cm LVOT Diameter 1.9 cm Aortic Root Diameter 3.1 cm LA Systolic Diameter LX 4.9 cm 3.0 - 4.0 / 2.7 - 3.8 cm LA Volume 39.0 cm 18 - 58 / 22 - 52 cm Ascending Aorta Diameter 3.4 cm DOPPLER AV Peak Velocity 238.0 cm/s AV Peak Gradient 22.7 mmHg AV Mean Velocity 186.0 cm/s AV Mean Gradient 15.0 mmHg AV Velocity Time Integral 57.4 cm LVOT Peak Velocity 128.0 cm/s LVOT Peak Gradient 6.6 mmHg LVOT Mean Velocity 88.4 cm/s LVOT Mean Gradient 4.0 mmHg LVOT Velocity Time Integral 29.1 cm LVOT Stroke Volume 82.5 cm AV Area Cont Eq vti 1.4 cm AV Area Cont Eq pk 1.5 cm MV Peak Velocity 136.0 cm/s MV Peak Gradient 7.4 mmHg MV Mean Velocity 85.6 cm/s MV Mean Gradient 3.0 mmHg Mitral E Point Velocity 110.0 cm/s Mitral A Point Velocity 129.0 cm/s Mitral E to A Ratio 0.9 MV PHT Velocity 141.0 cm/s MV Deceleration [place] 922.0 cm/s MV Pressure Half Time 45.9 ms MV Area PHT 4.8 cm MV Deceleration Time 251.0 ms TR Peak Velocity 289.0 cm/s TR Peak Gradient 33.4 mmHg Right Atrial Pressure 5.0 mmHg Pulmonary Artery Systolic Pressu 38.4 mmHg Right Ventricular Systolic Press 38.4 mmHg PV Peak Velocity 105.0 cm/s PV Peak Gradient 4.4 mmHg PV Mean Velocity 71.4 cm/s PV Mean Gradient 2.0 mmHg PV Velocity Time Integral 23.8 cm LV E' Lateral Velocity 5.9 cm/s Mitral E to LV E' Lateral Ratio 18.8 LV E' Septal Velocity 4.7 cm/s Mitral E to LV E' Septal Ratio 23.5
[2017-11-24 09:47] VITALS: BP 134/60
--- NOTE | 2017-11-24 10:05 | PN- Housestaff ---
Russel MOORE,[facility] 11/24/17 0934: Subjective Follow-up For: Stroke Subjective: Patient was seen and examined this morning. His vital sigs are stable, BP 122/ 60. His speech improved almost at baseline. He was able to walk with PT down the hole. denied any weakness, numbness, headaches, CXP, SOB. Tele monitor is SR. Review of Systems Constitutional: Reports: see HPI. Objective Last 24 Hrs of Vital Signs/I&O Vital Signs Date Time Temp Pulse Resp B/P B/P Pulse O2 O2 Flow FiO2 Mean Ox Delivery Rate 11/24 0600 98.2 59 20 122/66 96 11/23 2313 97.0 62 20 142/72 95 Room Air 11/23 2201 73 149/72 11/23 1453 97.8 67 20 150/78 96 Room Air 11/23 1051 160/76 11/23 1051 160/76 11/23 1051 160/76 11/23 1008 98.3 75 18 160/76 99 Room Air Intake & Output 11/24 1600 11/24 0800 11/24 0000 Intake Total 240 375 Output Total 150 95 Balance 90 280 Intake, IV 225 Intake, Oral 240 150 Number 1 Bowel Movements Output, Urine 150 95 Physical Exam General Appearance: Alert, Oriented X3, Cooperative, No Acute Distress Skin: No Rashes Skin Temp/Moisture Exam: Warm/Dry HEENT: Atraumatic, PERRLA, EOMI, Mucous Membr. moist/pink Neck: Supple Cardiovascular: Regular Rate, Normal S1, Normal S2, No Murmurs Lungs: Clear to Auscultation, Normal Air Movement Abdomen: Normal Bowel Sounds, Soft, No Tenderness Neurological: Normal Gait, Normal Speech, Strength at 5/5 X4 Ext, Normal Tone, Sensation Intact, Cranial Nerves 3-12 NL, Reflexes 2+ Extremities: No Clubbing, No Cyanosis, No Edema, Normal Pulses Assessment/Plan Assessment: Mr. Amaro is 87 year old male with past medical history significant for hypertension, hyperlipidemia, CAD status post quadruple bypass without stent placement 2004 presented to ED with chief complaint of weakness and slurred speech, MRI showed acute stroke of right posterior parietal region and in the bilateral centra semiovale. Problem list #Acute multiple small strokes ontop of chronic stroke -Carotid US positive for nonhemodynamically significant stenosis of the proximal right internal carotid artery and left internal carotid arterycorresponding to a 0-49% . -Echocardiogram was obtrained that revealed m ild concentric left ventricular hypertrophy Normal left ventricular ejection fraction visually estimated at >65 , stage 1 diastolic dysfunction, diffuse thickening of the aortic valve cusps with reduced excursion. Mild aortic stenosis. Right ventricular systolic pressure estimated to be elevated at 35-40 mmHg. -Continue asoirin and plavix -Continue statin -Continue home BP medication -Cardic recommendation was obtained, alyse, will follow up -Neuro recommendation was obtained, shaheed, will follow up Code full Problem List: 1. Stroke Pain Ratin Pain Location: N/A Pain Goal: Pain 4 or less Pain Plan: SEE MEDICATION Tomorrow's Labs & Rationales: N/A Ernesto Acuna MD 11/24/17 1229: Attending MD Review Statement Attending Statement Attending MD Statement: examined this patient, discuss w/resident/PA/[employer], agreed w/resident/PA/[employer] PROFESSIONAL, reviewed EMR data (avail), discussed with nursing, discussed with case mgmt, amended to note Attending Assessment/Plan: Patient was seen and examined this morning. He was lying comfortably in bed and not in any acute distress. There were no issues overnight reported by nursing staff no events on telemetry monitoring. He remains without any more to deficits in his extremities. His voice is slightly slurred this morning. He is tolerating his diet with no evidence of aspiration. Hospital of his stroke workup carotid Dopplers showed no evidence of hemodynamically significant stenosis in the external and internal carotid arteries. Echocardiogram shows normal ejection fraction and stage I diastolic dysfunction. He is noted to have some pulmonary hypertension. Patient has no respiratory complaints. He is maintaining saturation on room air. Recommendations: -Monitored overnight reveals no evidence of cardiac arrhythmias or cardiac embolic disease. -Patient will be placed on dual antiplatelet therapy with aspirin and Plavix. He is to follow-up with the neurology service in 4 weeks to determine need for continuation of dual antiplatelet therapy after this time. -He is to continue a statin therapy with Lipitor 40 mg daily. -Patient is to follow-up with the cardiology service as an outpatient for- prolonged cardiac monitoring. -Vasculitis may also be considered as an etiology to his bilateral diffuse infarcts. ESR has been ordered and is pending. This can be followed up on the outpatient by his primary care provider. If elevated further workup will need to be initiated. -Cardiology service has deferred performing a ANGLE in the absence of convincing evidence of cardioembolic disease. -Patient is medically stable to be discharged today.
--- NOTE | 2017-11-24 11:11 | PN- Cardiology ---
Subjective Subjective: The patient is feeling better. His speech is pretty much back to normal. There have been no arrhythmias on the monitor. Neurology concurs with the plan for monitoring for arrhythmias. His echocardiogram did not show any thing suggestive of cardio embolic phenomenon and I don't think a ANGLE is currently indicated. I would recommend outpatient follow-up with the plan for possible long distance operator monitoring with either event monitor or implantable loop recorder. From a cardiac standpoint I think the patient can be discharged. Objective Vital Signs and I&Os Vital Signs Date Time Temp Pulse Resp B/P B/P Pulse O2 O2 Flow FiO2 Mean Ox Delivery Rate 11/24 0947 59 134/60 11/24 0946 59 134/60 11/24 0946 59 134/60 11/24 0600 98.2 59 20 122/66 96 11/23 2313 97.0 62 20 142/72 95 Room Air 11/23 2201 73 149/72 11/23 1453 97.8 67 20 150/78 96 Room Air Intake & Output 11/24 1600 11/24 0800 11/24 0000 11/23 1600 11/23 0800 11/23 0000 Intake Total 240 375 Output Total 150 95 Balance 90 280 Intake, IV 225 Intake, Oral 240 150 Number 1 Bowel Movements Output, Urine 150 95 Patient 175 lb 175 lb Weight Weight Estimated Measurement Method Physical Exam: He is in no distress HEENT exam normal No carotid bruits Chest is clear Heart regular rhythm with 2 to 3/6 systolic ejection murmur at the base No edema Current Medications: Current Medications Sig/Demond Start time Last Medication Dose Route Stop Time Status Admin Acetaminophen 650 MG Q6P PRN 11/23 1230 AC PO Allopurinol 300 MG DAILY 11/24 1000 AC 11/24 PO 0947 Amlodipine Besylate 10 MG DAILY 11/24 1000 AC 11/24 PO 0946 Aspirin 81 MG DAILY 11/24 1000 AC 11/24 PO 0946 Atorvastatin Calcium 40 MG 1700 11/23 1700 AC 11/23 PO 1632 Clopidogrel Bisulfate 75 MG DAILY 11/23 1857 AC 11/24 PO 0946 Enoxaparin Sodium 40 MG DAILY 11/24 1000 AC SC Enoxaparin Sodium 40 MG DAILY 11/23 1221 DC 11/23 SC 1238 Levothyroxine Sodium 0.075 MG DAILY AC 11/23 1205 AC 11/24 PO 0557 Lisinopril 20 MG DAILY 11/24 1000 CAN PO Lisinopril 20 MG DAILY 11/24 1000 AC 11/24 PO 0947 Lisinopril 20 MG ONCE ONE 11/23 1845 CAN PO 11/23 1846 Lorazepam 0 Q1P PRN 11/23 1600 AC IV Metoprolol Tartrate 50 MG BID 11/23 2200 CAN PO Metoprolol Tartrate 50 MG BID 11/23 2200 AC 11/24 PO 0946 Metoprolol Tartrate 50 MG ONCE ONE 11/23 1845 CAN PO 11/23 1846 Sodium Chloride 1,000 ML .[id number] 11/23 1230 AC 11/24 IV 0150 Results Last 48 Hrs of Labs/Mics: Laboratory Tests 11/24/17 0850: ESR Westergren Pending 11/24/17 0614: Anion Gap 11, Estimated GFR > 60, BUN/Creatinine Ratio 11.3, CBC w Diff NO MAN DIFF REQ, RBC 4.51 L, MCV 96.8 H, MCH 31.8 H, RDW 13.2, MPV 8.1, Gran % 70.7, Lymphocytes % 16.7 L, Monocytes % 10.7 H, Eosinophils % 1.1, Basophils % 0.8, Absolute Granulocytes 6.2, Absolute Lymphocytes 1.5, Absolute Monocytes 0.9 H, Absolute Eosinophils 0.1, Absolute Basophils 0.1, PUBS MCHC 32.8 L 11/23/17 1150: Lactic Acid 1.9 11/23/17 1022: Urinalysis LIGHT H, Urine Color YEL, Urine Clarity CLEAR, Urine pH 6.0, Ur Specific [place] 1.025, Urine Protein TRACE H, Urine Ketones NEG, Urine Nitrite NEG, Urine Bilirubin NEG, Urine Urobilinogen 0.2, Ur Leukocyte Esterase NEG, Ur Microscopic SEDIMENT EXAMINED, Urine RBC RARE, Urine WBC RARE, Ur Epithelial Cells RARE, Urine Bacteria RARE H, Hyaline Casts RARE H, Granular Casts RARE H, Urine Mucus FEW, Urine Hemoglobin NEG, Urine Glucose NEG 11/23/17 0745: Anion Gap 16, Estimated GFR > 60, BUN/Creatinine Ratio 15.0, Glucose 145 H, Hemoglobin A1c 5.2, Lactic Acid 2.6 H, Calcium 9.4, Total Bilirubin 1.0, AST 35 , ALT 44, Alkaline Phosphatase 103, Troponin I 0.01, Total Protein 6.7, Albumin 3.8, Globulin 2.9, Albumin/Globulin Ratio 1.3, TSH &T3 &Free T4 Intrp 2.490, CBC w Diff NO MAN DIFF REQ, RBC 5.09, MCV 95.1 H, MCH 32.2 H, RDW 13.5, MPV 7.9, Gran % 84.0 H, Lymphocytes % 7.3 L, Monocytes % 7.9, Eosinophils % 0.3, Basophils % 0.5, Absolute Granulocytes 11.2 H, Absolute Lymphocytes 1.0 L, Absolute Monocytes 1.0 H, Absolute Eosinophils 0, Absolute Basophils 0.1, PUBS MCHC 33.9 Recent Imaging Studies: CONCLUSIONS Mild concentric left ventricular hypertrophy. Normal left ventricular ejection fraction visually estimated at >65 Abnormal relaxation filling pattern of the left ventricle for age (stage 1 diastolic dysfunction). Left atrial size at the upper limits of normal. Mild thickening/calcification of the mitral valve leaflets. Mild to moderate mitral annular calcification. Mild mitral regurgitation. Diffuse thickening of the aortic valve cusps with reduced excursion. Mild aortic stenosis. No aortic regurgitation. Right ventricular systolic pressure estimated to be elevated at 35- 40 mmHg. Aortic arch not well visualized. Celio Kurtz M.D. (Electronically Signed) Final Date: 24 November 2017 09:44 Assessment/Plan Assessment/Plan The patient has improved significantly and is pretty much back to normal neurologically. There have been no arrhythmias. His echo showed only mild aortic stenosis and no evidence of cardioembolic phenomenon. I think the patient can be discharged at this time. There is no clear indication for ANGLE. I will discuss long-term monitoring options with him and his family as an outpatient. Continue telemetry? Yes
[2017-11-24] MEDS ORDERED: LIPITOR40 M1 PO ×2 (12:26→13:02)
[2017-11-24] MEDS ORDERED: PLAVIX75 M1 PO ×2 (12:26→13:02)
--- NOTE | 2017-11-24 12:30 | Patient Discharge Instructions ---
Discharge Instructions General Discharge Information You were seen/treated for: STROKE Special Instructions: -PLEASE FOLLOW UP WITH YOUR PCP WITHIN 1 WEEK AFTER DISCHARGE -PLEASE FOLLOW UP WITH YOUR CARDIOLOGEST DR. COVARRUBIAS AFTER DISCHARGE -PLEASE FOLLOW UP WITH DR. OSBORNE AFTER DISCHARGE -PCP SHOULD FOLLOW UP ESR. Acute Coronary Syndrome Inclusion Criteria At DC or during hospital stay patient has or had the following: ACS DIAGNOSIS No Discharge Core Measures Meds if any: Prescribed or Continued at Discharge Meds if any: NOT Prescribed or Continued at Discharge Congestive Heart Failure Inclusion Criteria At DC or during hospital stay patient has or had the following: CHF DIAGNOSIS No Discharge Core Measures Meds if any: Prescribed or Continued at Discharge Meds if any: NOT Prescribed or Continued at Discharge Cerebrovascular accident Inclusion Criteria At DC or during hospital stay patient has or had the following: CVA/TIA Diagnosis Yes Discharge Core Measures Meds if any: Prescribed or Continued at Discharge Meds if any: NOT Prescribed or Continued at Discharge Venous thromboembolism Inclusion Criteria VTE Diagnosis No VTE Type NONE VTE Confirmed by (Test) NONE Discharge Core Measures - Per Current guidelines, there needs to be overlap - treatment for the first 5 days of Warfarin therapy. - If discharged on Warfarin prior to 5 days of - overlap therapy, the patient will need to be - assessed for post discharge needs including - *Post discharge parental anticoagulation - *Warfarin and/or parental anticoagulation education - *Follow up date to check INR post discharge At least 5 days overlap therapy as Inpatient Yes Meds if any: Prescribed or Continued at Discharge Note: Overlap Therapy is Warfarin and Anticoagulant Meds if any: NOT Prescribed or Continued at Discharge
--- NOTE | 2017-11-24 15:50 | Discharge Summary ---
See Addendum Visit Information Visit Dates Admission Date: 11/23/17 Discharge Date: 11/24/17 Hospital Course Course Attending Physician: Ernesto Acuna MD Primary Care Physician: Noé MOORE,Godwin [facility] Course: Mr. Amaro is 87 year old male with past medical history significant for hypertension, hyperlipidemia, CAD status post quadruple bypass without stent placement many years ago presented to ED with chief complaint of weakness and slurred speech for one day. One admission vital signs 98.4, pulse 84 regular, blood pressure 157/74, respiratory rate 18 and saturation 98% room air Labs significant for leukocytosis 13.3 with no bands, normal electrolytes, lactic acid 2.6, sugar 145, UA negative nitrates Problem list #Acute Stroke #History of hypertension #History of coronary artery disease #Hyperlipidemia Patient was admitted to telemetry floor for monitoring. He was placed on dual antiplatelet therapy aspirin and Plavix, high dose statin Lipitor 40 mg daily. We continued his home blood pressure medication metoprolol 50 mg twice a day, amlodipine 10 mg daily and lisinopril 20 mg daily after was cleared by neurologist. CT head on admission revealed multiple chronic lacunar infarcts and MRI showed acute stroke of right posterior parietal region and in the bilateral centra semiovale. Neuro evaluation was obtained with recommendation to obtain cardic consultation and TTE and ANGLE to evaluate for cardioembolic disease vs vasculitis. Carotid US positive for nonhemodynamically significant stenosis of the proximal right internal carotid artery and left internal carotid arterycorresponding to a 0-49% . TTE was obtrained that revealed mild concentric left ventricular hypertrophy Normal left ventricular ejection fraction visually estimated at >65, stage 1 diastolic dysfunction, diffuse thickening of the aortic valve cusps with reduced excursion. Mild aortic stenosis. Right ventricular systolic pressure estimated to be elevated at 35-40 mmHg. ESR is elevated 50 however is not suggestive for vasculitis. During the patient's hospital stay, color television console monitor didn't pick any arrhythmia. Patient was discharged to follow up with neurology in 4 weeks to assess need for continuation of dual antiplatelet therapy. Cardiology for outpatient ANGLE and to follow with primary care physician to trend ESR. Patient was optimized on medical therapy, cleared by PT and speech therapy. Patient was stable and discharged in the absence of convincing evidence of embolic heart disease. Patient presented with mild leukocytosis without bandemia, lactic acid of 2.6. Leukocytosis mostly reactional as patient has no symptoms or signs of infection. Lactic acid could represent ischemic versus dehydration, patient was hydrated gently with normal saline 100 mL/h 1 bag and lactic acid dropped to 1.9 Code full DVT prophylaxis Lovenox Images CT head IMPRESSION: 1. No acute abnormalities identified. 2. Multiple chronic lacunar infarcts and mild-moderate white matter chronic small vessel ischemic disease. 3. Mild-moderate diffuse parenchymal volume loss of the brain. Chest x-ray IMPRESSION: No acute pulmonary findings. MRI brain with and without gadolinium IMPRESSION: 1. There are multiple small areas of restricted diffusion in the bilateral occipital lobes, the right posterior parietal region and in the bilateral centra semiovale consistent with acute infarcts. None of these demonstrate hemorrhagic transformation. 2. In addition, there are diffusion hyperintensities without restriction, and relatively extensive periventricular and subcortical white matter changes consistent with subacute ischemia and chronic microvascular ischemic disease. 3. There is diffuse volume loss. There is no evidence of hemorrhage. Carotid Doppler IMPRESSION: 1. RIGHT: Nonhemodynamically significant stenosis of the proximal right internal carotid artery corresponding to a 0-49% stenosis by velocity criteria. 2. LEFT: Nonhemodynamically significant stenosis of the proximal left internal carotid artery corresponding to a 0-49% stenosis by velocity criteria. 3. No evidence for hemodynamically significant stenosis in the external carotid arteries. Echocardiogram CONCLUSIONS Mild concentric left ventricular hypertrophy. Normal left ventricular ejection fraction visually estimated at >65 Abnormal relaxation filling pattern of the left ventricle for age (stage 1 diastolic dysfunction). Left atrial size at the upper limits of normal. Mild thickening/calcification of the mitral valve leaflets. Mild to moderate mitral annular calcification. Mild mitral regurgitation. Diffuse thickening of the aortic valve cusps with reduced excursion. Mild aortic stenosis. No aortic regurgitation. Right ventricular systolic pressure estimated to be elevated at 35- 40 mmHg. Aortic arch not well visualized. Allergies: Coded Allergies: No Known Allergies (11/23/17) Disposition Summary Disposition Principal Diagnosis: Stroke Additional Diagnosis: Elevated ESR Discharge Disposition: home or self care Discharge Instructions General Discharge Information Code Status: Full Code Patient's Diet: Heart healthy Patient's Activity: as tolerated Follow-Up Instructions/Appts: -PLEASE FOLLOW UP WITH YOUR PCP WITHIN 1 WEEK AFTER DISCHARGE -PLEASE FOLLOW UP WITH YOUR CARDIOLOGEST DR. COVARRUBIAS AFTER DISCHARGE -PLEASE FOLLOW UP WITH DR. OSBORNE AFTER DISCHARGE -PCP SHOULD FOLLOW UP ESR. Medications at Discharge Discharge Medications: Stop taking the following medications: Lovastatin (Lovastatin) 40 MG TABLET ORAL DAILY Qty = 90 Continue taking these medications: Felodipine (Felodipine ER) 10 MG TAB.ER.24H 1 Tablet ORAL DAILY Qty = 90 Comments: NOT GIVEN IN HOSPITAL Metoprolol Tartrate (Metoprolol Tartrate) 50 MG TABLET 1 Tablet ORAL TWICE DAILY Qty = 180 Comments: Last Taken: 11/24/17 Time: 0946 Levothyroxine Sodium (Levothyroxine Sodium) 75 MCG TABLET 1 Tablet ORAL DAILY Qty = 90 Comments: Last Taken: 11/24/17 Time: 0557 Lisinopril (Lisinopril) 20 MG TABLET 1 Tablet ORAL DAILY Qty = 90 Comments: Last Taken: 11/24/17 Time: 0947 Allopurinol (Allopurinol) 300 MG TABLET 1 Tablet ORAL DAILY Qty = 90 Comments: Last Taken: 11/24/17 Time: 0947 Aspirin (Aspirin*) 81 MG TAB.CHEW 1 Tablet ORAL DAILY Comments: Last Taken: 11/24/17 Time: 0946 Start taking the following new medications: Clopidogrel Bisulfate (Plavix) 75 MG TABLET 1 Tablet ORAL DAILY Qty = 30 No Refills Instructions: . Comments: Last Taken: 11/24/17 Time: 0946 Atorvastatin Calcium (Lipitor) 40 MG TABLET 1 Tablet ORAL DAILY Qty = 30 No Refills Instructions: . Comments: Last Taken: 11/23/17 Time: 1632 Copies To: Nancy MOORE,Alec Sood; Tessie MOORE,Celio Sams; Noé MOORE,Godwin Allison
== END 2017-11-24 13:45 | DRG 65 ==
LOC: ERH 06:50 → 1NO 10:24 → ERHI 10:24 → ENTRNSPT 11:51 → EDTRNSPT 12:23 → EDTRNSPTSTS 12:23 → CMPTRNSPT 12:52 → ENRESERV 13:44 → ENTRNSPT 13:54 → EDTRNSPTSTS 14:02 → EDTRNSPT 14:02 → 1NO 14:22 → CMPTRNSPT 14:23 → 1NO 11-24 13:45 → ENTRNSPT 11-24 13:47 → CMPTRNSPT 11-24 14:51
PROVIDERS: Emergency Medicine; Student in an Organized Health Care Education/Training Program
DX: I63.40 Cerebral infarction due to embolism of unspecified cerebral artery (principal); E87.2 Acidosis; I35.0 Nonrheumatic aortic (valve) stenosis; Z95.1 Presence of aortocoronary bypass graft; E03.9 Hypothyroidism, unspecified; E78.5 Hyperlipidemia, unspecified; I10 Essential (primary) hypertension; I25.10 Atherosclerotic heart disease of native coronary artery without angina pectoris; R29.810 Facial weakness; R47.81 Slurred speech; M10.9 Gout, unspecified; Z95.5 Presence of coronary angioplasty implant and graft; F17.210 Nicotine dependence, cigarettes, uncomplicated
CPT/HCPCS: 1NP; 70552; 36415; 70553; 71045; 81001; 82436; 87040; 87086; 93005; 93010; 93306; 97110-GO; 97116-GO; 97161-GP; 97166-GO; A9579; J0713; J1650; J3490; J7040